=== PATIENT | female | born 1965 | race Caucasian/White ===

== ENCOUNTER 2020-03-09 18:08 | Inpatient (IN) | payer OTHER ==
[~2020-03-09] VITALS: Ht 172.7 cm; Wt 154.2 kg
[2020-03-09] MEDS: LACTATED RINGERS 1,000 ML IV SCH (04:00)
[2020-03-09] MEDS: NACL 0.9% 1,000 ML IV SCH (04:00)
--- NOTE | 2020-03-09 18:08 | NUR ---
PT BIBA BLS TO ER BED 11
[2020-03-09 18:22] VITALS: BP 114/59
--- NOTE | 2020-03-09 18:24 | NUR ---
54 Y/O F BIBA FROM HOME C/C ABDOMINAL CRAMPING, 10/10 PAIN, RADIATING FROM CENTER OF ABDOMEN TO THE LLQ X 1 DAY. PER PT USED LAXATIVES, TOOK DOSE IN THE AM AND PM YESTERDAY, HAD 3-4 BM, BROWN, DIARREAH. PER PT, LAXATIVE USE CAUSE ABDOMINAL CRAMPING DISCOMFORT TODAY AND CALLED AMBULANCE. PT NKA. HX DM,AFIB. RX HEMOLIN,BISOPROLOL.
[2020-03-09] MEDS ORDERED: NACL 0.9% 1,000 ML IV ONE ×2 (18:45→20:15)
[2020-03-09] MEDS ORDERED: ONDANSETRON 4 MG/2 ML VIAL IVP ONE (18:45)
[2020-03-09] MEDS ORDERED: MORPHINE SULFATE 5 MG/ML VIAL IVP ONE (18:45)
[2020-03-09 19:00] LABS: BASOPHILS # (AUTO) 0.1 K/uL (0.00-0.22); BASOPHILS % (AUTO) 0.4 % (0.0-2.0); EOSINOPHILS % (AUTO) 0.1 % (0.0-4.0); HEMATOCRIT 38.3 % (36-48); HEMOGLOBIN 12.2 g/dL (12.0-16.0); LYMPHOCYTES # (AUTO) 1.4 K/uL (2.5-16.5); LYMPHOCYTES % (AUTO) 6.7 % (20.5-51.1); MEAN CORPUSCULAR HEMOGLOBIN 27 pg (27-31); MEAN CORPUSCULAR HGB CONC 32 g/dL (33-37); MEAN CORPUSCULAR VOLUME 83.8 fL (80-94); MONOCYTES # (AUTO) 0.8 K/uL (0.8-1.0); MONOCYTES % (AUTO) 3.8 % (1.7-9.3); NEUTROPHILS # (AUTO) 18.1 K/uL (1.8-7.7); PLATELET COUNT (AUTO) 262 K/uL (140-450); RED BLOOD CELL COUNT(AUTO) 4.57 MIL/uL (4.20-5.40); RED CELL DISTRIBUTION WIDTH 16.4 % (11.6-13.7); WHITE BLOOD COUNT (AUTO) 20.3 K/uL (4.8-10.8)
--- NOTE | 2020-03-09 19:00 | NUR ---
CONSENT FOR CT WITH CONTRAST SIGNED BY PT AND PLACED IN CHART
[2020-03-09 19:18] LABS: ALBUMIN 2.6 g/dL (3.4-5.0); ANION GAP 14.5 (8-16); CARBON DIOXIDE 25.4 mmol/L (21-32); CREATININE 1.4 mg/dL (0.6-1.3); POTASSIUM 3.9 mmol/L (3.5-5.1)
--- NOTE | 2020-03-09 19:18 | NUR ---
REPORT GIVEN TO CONOR BATISTA FOR CONTINUITY OF CARE
--- NOTE | 2020-03-09 19:30 | NUR ---
RECEIVED REPORT FROM CORINA BATISTA
[2020-03-09] MEDS ORDERED: PIPERACILLIN/TAZOBACTAM 3.375 GM in DEXTROSE 5% 50 ML IV ONE (19:40)
[2020-03-09] MEDS ORDERED: NOREPINEPHRINE 4 MG in DEXTROSE 5% 250 ML IV ONE (21:10)
[2020-03-09] MEDS ORDERED: metroNIDAZOLE 500 MG/NS PREMIX 100 ML IV ONE (21:25)
[2020-03-09] MEDS ORDERED: ONDANSETRON 4 MG/2 ML VIAL IM/IVP PRN (21:55)
[2020-03-09] MEDS ORDERED: LORazepam 2 MG/ML VIAL IM/IVP PRN (21:55)
[2020-03-09] MEDS ORDERED: ACETAMINOPHEN 325 MG TAB PO PRN (21:55)
[2020-03-09] MEDS ORDERED: MORPHINE SULFATE 2 MG/ML SYR IVP PRN (21:55)
[2020-03-09] MEDS ORDERED: HYDROcodone/APAP 5/325 MG 1 TAB TAB PO PRN (21:55)
[2020-03-09] MEDS ORDERED: ZOLPIDEM 5 MG TAB PO PRN (21:55)
[2020-03-09] MEDS ORDERED: DOCUSATE SODIUM 100 MG GELCAP PO PRN (21:55)
[2020-03-09] MEDS ORDERED: HYDROmorphone 1 MG/ML AMP IVP PRN (22:15)
[2020-03-09] MEDS ORDERED: MEPERIDINE 25 MG/ML SYR IVP PRN (22:15)
[2020-03-09] MEDS ORDERED: BLOOD GLUCOSE MONITORING 1 DEV DEV FS SCH (22:15)
[2020-03-09] MEDS ORDERED: ONDANSETRON 4 MG/2 ML VIAL IVP PRN (22:15)
[2020-03-09] MEDS ORDERED: LIDOCAINE 1% 500 MG/50 ML VIAL ONE (22:25)
[2020-03-09] MEDS ORDERED: BUPIVACAINE-MPF 0.25% 30 ML VIAL INJ ONE (22:25)
--- NOTE | 2020-03-09 22:48 | NUR ---
PT TO GO TO SURGERY FOR PERFORATED COLON. SURGEON AT BEDSIDE SPEAKING WITH PT AND
[2020-03-09] MEDS ORDERED: PIPERACILLIN/TAZOBACTAM 3.375 GM VIAL IV ONE (23:04)
--- NOTE | 2020-03-09 23:12 | NUR ---
PT TAKEN TO OR BY OR STAFF
--- NOTE | 2020-03-09 23:15 | NUR ---
Patient will be admitted to care of DR JUNIOR. PT GOING DIRECTLY TO OR. Will go to room OR. Belongings list completed. Report to OR STAFF.
[2020-03-09] MEDS ORDERED: PHENYLEPHRINE 10 MG/ML VIAL ONE (23:19)
[2020-03-09] MEDS ORDERED: fentaNYL citrate 0.05 MG/ML VIAL ONE (23:19)
[2020-03-09] MEDS ORDERED: SUGAMMADEX SODIUM 200 MG/2 ML VIAL IV ONE (23:19)
[2020-03-09] MEDS ORDERED: DEXAMETHASONE 4 MG/ML VIAL ONE (23:19)
[2020-03-09] MEDS ORDERED: ROCURONIUM 50 MG/5 ML VIAL IV ONE (23:19)
[2020-03-09] MEDS ORDERED: SEVOFLURANE 250 ML BTL INH ONE (23:19)
[2020-03-09] MEDS ORDERED: PROPOFOL 200 MG/20 ML VIAL IV ONE (23:19)
[2020-03-09 23:29] LABS: PROTHROMBIN TIME 10.8 secs (10.8-13.4)
--- NOTE | 2020-03-09 23:30 | NUR ---
LAB DRAWN AT 2130, RECEIVED CRITICAL LAB VALUE FOR LACTIC ACID 2.1, AT 2330. NOT NOTIFIED, LACTIC ACID TRENDING DOWN.
[2020-03-09 23:39] LABS: CHOL/HDL RATIO 2.9 (1-4.5); FREE T4 (FREE THYROXINE) 1.29 ng/dL (0.76-1.46); MAGNESIUM 1.3 mg/dL (1.8-2.4); PHOSPHORUS 3.1 mg/dL (2.5-4.9); THYROID STIMULATING HORMONE 1.91 uIU/mL (0.34-3.74)
[2020-03-10] MEDS ORDERED: NORT10CA17 PO (00:03)
[2020-03-10] MEDS ORDERED: MONT10TA35 PO (00:04)
[2020-03-10] MEDS ORDERED: BISO10TA16 PO ×2 (00:06→22:50)
[2020-03-10] MEDS ORDERED: HUMALIN 70/30 (00:11)
[2020-03-10] MEDS ORDERED: INSU3SUS11 SUBQ (01:14)
[2020-03-10] MEDS ORDERED: INSU10SU2 SUBQ (01:14)
[2020-03-10] MEDS ORDERED: NORTRIPTYLINE 10 MG CAP PO PRN (01:15)
[2020-03-10] MEDS: HYDROmorphone PFS 2 MG/ML SYR ONE ×2 (02:50→03:00)
[2020-03-10 03:50] VITALS: BP 115/56
--- NOTE | 2020-03-10 03:50 | NUR ---
RECEIVED BEDSIDE REPORT FROM SR. DIRECTOR MAGDALENA FOR PT'S CONTINUITY OF CARE. PT IS S/P EX LAP WITH ILEOSTOMY AND JEREMY DRAIN IN PLACE. PT STATES HAVING BACK PAIN, PER SR. DIRECTOR, PT JUST RECEIVED DILAUDID. PT IS AAOX4, IS ON INFORMATION SYSTEMS PLANNER, RADIAL AND PEDAL PULSES ARE PRESENT, IS ON ROOM AIR, PT IS BEDREST AT THIS TIME, HAS COPELAND CATH IN PLACE, NO EDEMA, ABD DRESSING DRY AND INTACT. WILL MONITOR PT THROUGHOUT SHIFT.
[2020-03-10] MEDS: NACL 0.9% 1,000 ML IV SCH (04:33)
[2020-03-10] MEDS ORDERED: AMPICILLIN/SULBACTAM 3 GM VIAL ONE (05:57)
[2020-03-10] MEDS: AMPICILLIN/SULBACTAM 3 GM in NACL 0.9% 100 ML IV SCH ×3 (06:00→12:56)
[2020-03-10] MEDS: LACTATED RINGERS 1,000 ML IV SCH (06:30)
--- NOTE | 2020-03-10 06:30 | NUR ---
PER , DC LR AND CONTINUE NS AT 150 ML/HR. PT REFUSED HOSPITAL'S CPAP, RT EDUCATED PT, PT STILL REFUSED. MD AWARE.
--- NOTE | 2020-03-10 06:44 | NUR ---
PATIENT REFUSES TO WEAR CPAP AT [facility]. DOCTOR AND RN NOTIFIED. PATIENT STABLE NO RESP DISTRESS NO SHORTNESS OF BREATH
--- NOTE | 2020-03-10 06:45 | NUR ---
PT C/O BEING HOT, NO FEVER NOTED, PT GIVEN ICE PACKS FOR COOLING MEASURES, EMPTIED 60ML SANGUINOUS DRAINAGE FROM JEREMY DRAIN. PT CONTINUES OT BE ON 3L O2 FOR COMFORT, AWARE. WILL ENDORSE TO AM SHIFT RN FOR PT'S CONTINUITY OF CARE.
[2020-03-10] MEDS: ACETAMINOPHEN 325 MG TAB PO SCH ×4 (06:57→21:00)
--- NOTE | 2020-03-10 07:19 | NUR ---
PATIENT HAS BEEN SCREENED AND CATEGORIZED MODERATE NUTRITION RISK. PATIENT WILL BE SEEN WITHIN 3-5 DAYS OF ADMISSION. 03/12/20 03/14/[address]
--- NOTE | 2020-03-10 07:30 | NUR ---
RECEIVED REPORT FROM NIGHT NURSE FOR CONTINUITY OF CARE, PT IS STABLE, PT IS S/P EXPLORATORY LAP WITH ILEOSTOMY, JEREMY DRAIN, COPELAND CATH IN PLACE, PT ON 3L NC OXYGEN FOR COMFORT, BED IN LOW POSITION, NO SIGNS OF DISTRESS NOTED, CALL LIGHT WITHIN REACH.
[2020-03-10 08:00] VITALS: BP 110/72
[2020-03-10] MEDS ORDERED: DEXT 5% / NACL 0.9% 500 ML IV SCH (08:40)
[2020-03-10] MEDS ORDERED: DEXTROSE 50% 50 ML SYR IVP PRN (08:40)
[2020-03-10] MEDS ORDERED: CELECOXIB 100 MG CAP PO SCH (09:00)
[2020-03-10] MEDS ORDERED: INSULIN NPH HUM/REG INSULIN HM 100 UNIT/ML 10 ML VIAL SUBQ SCH ×2 (09:00→17:00)
[2020-03-10] MEDS: GABAPENTIN 300 MG CAP PO SCH ×2 (09:00→09:33)
[2020-03-10 09:14] LABS: BASOPHILS % (AUTO) 0.2 % (0.0-2.0); HEMATOCRIT 42.1 % (36-48); HEMOGLOBIN 13.3 g/dL (12.0-16.0); LYMPHOCYTES # (AUTO) 0.5 K/uL (2.5-16.5); LYMPHOCYTES % (AUTO) 2.7 % (20.5-51.1); MEAN CORPUSCULAR HEMOGLOBIN 27 pg (27-31); MEAN CORPUSCULAR HGB CONC 32 g/dL (33-37); MEAN CORPUSCULAR VOLUME 85.8 fL (80-94); MONOCYTES # (AUTO) 0.4 K/uL (0.8-1.0); NEUTROPHILS # (AUTO) 18.8 K/uL (1.8-7.7); NEUTROPHILS % (AUTO) 95.1 % (42.2-75.2); PLATELET COUNT (AUTO) 257 K/uL (140-450); RED BLOOD CELL COUNT(AUTO) 4.91 MIL/uL (4.20-5.40); RED CELL DISTRIBUTION WIDTH 17.1 % (11.6-13.7); WHITE BLOOD COUNT (AUTO) 19.7 K/uL (4.8-10.8)
[2020-03-10] MEDS ORDERED: NACL 0.9% 2,000 ML IV SCH (09:15)
[2020-03-10] MEDS: ENOXAPARIN 40 MG/0.4 ML SYR SUBQ SCH (09:35)
[2020-03-10 09:37] LABS: ANION GAP 14.6 (8-16); CREATININE 1.2 mg/dL (0.6-1.3); POTASSIUM 4.6 mmol/L (3.5-5.1)
[2020-03-10] MEDS: DEXT 5% /NACL 0.9% 1,000 ML IV SCH ×3 (09:39→23:01)
--- NOTE | 2020-03-10 09:41 | NUR ---
ADMINISTERED SCHEDULED MEDICATION, MEDICATION EDUCATION GIVEN, PT TOLERATED WELL, INCENTIVE SPIROMETER GIVEN AND EDUCATION GIVEN, PT RETURN DEMONSTRATE USAGE, COPELAND CATH REMOVED WITH 1100 ML YELLOW URINE, PT IS STABLE, NO SIGNS OF DISTRESS NOTED, CALL LIGHT WITHIN REACH.
[2020-03-10] MEDS: BLOOD GLUCOSE MONITORING 1 DEV DEV FS SCH ×3 (11:30→21:00)
[2020-03-10 12:00] VITALS: BP 110/60
[2020-03-10] MEDS: INSULIN LISPRO SLIDING SCALE 100 UNITS/ML VIAL SUBQ PRN ×3 (13:11→23:00)
--- NOTE | 2020-03-10 13:12 | NUR ---
ADMINISTERED 4 UNITS OF HUMALOG FOR BLOOD GLUCOSE OF 245, ADMINISTERED SCHEDULED MEDICATION, MEDICATION EDUCATION GIVEN, PT TOLERATED MEDICATION WELL, PT IS STABLE, CALL LIGHT WITHIN REACH.
[2020-03-10] MEDS: HYDROcodone/APAP 5/325 MG 1 TAB TAB PO PRN (15:40)
--- NOTE | 2020-03-10 15:43 | NUR ---
ADMINISTERED NORCO FOR ABDOMINAL PAIN 6/10 PAIN AT INCISIONAL SITE, MEDICATION EDUCATION GIVEN, PT VERBALIZED UNDERSTANDING, PT TOLERATED WELL, PT IS STABLE, NO SIGNS OF DISTRESS NOTED, CALL LIGHT WITHIN REACH.
[2020-03-10 16:00] VITALS: BP 115/62
--- NOTE | 2020-03-10 17:48 | NUR ---
ADMINISTERED 2 UNITS OF HUMALOG FOR BLOOD GLUCOSE OF 163, MEDICATION EDUCTION GIVEN, PT TOLERATED WELL, PT IS STABLE, NO SIGNS OF DISTRESS NOTED, CALL LIGHT WITHIN REACH.
[2020-03-10] MEDS ORDERED: PIPERACILLIN/TAZOBACTAM 3.375 GM VIAL IV ONE ×2 (18:11→23:40)
[2020-03-10] MEDS: PIPERACILLIN/TAZOBACTAM 3.375 GM in DEXTROSE 5% 50 ML IV SCH ×2 (18:17→23:59)
--- NOTE | 2020-03-10 18:26 | NUR ---
ADMINISTERED SCHEDULED MEDICATION, MEDICATION EDUCATION GIVEN, PT VERBALIZED UNDERSTANDING, PT TOLERATED WELL, PT IS STABLE, NO SIGNS OF DISTRESS NOTED, CALL LIGHT WITHIN REACH.
--- NOTE | 2020-03-10 19:30 | NUR ---
RECFEIVED REPORT AT BEDSIDE FOR CONTINUITY OF CARE.
--- NOTE | 2020-03-10 19:35 | NUR ---
ENDORSE PT TO NIGHT NURSE FOR CONTINUITY OF CARE, PT IS STABLE
[2020-03-10 20:00] VITALS: BP 112/64
--- NOTE | 2020-03-10 20:00 | NUR ---
PT RECEIVED ALL ORDERED MEDS DUE , SHE DECLINED TYLENOL. DRESSINGS ON ABDOMEN DRY AND INTACT. JEREMY INTACT AND DRAINING BRADLEY BLOOD. IV FLUIDS RUNNING ORDERED.
[2020-03-10] MEDS: SIMETHICONE 80 MG TAB.CHEW PO PRN (20:09)
[2020-03-10] MEDS ORDERED: LACTATED RINGERS 1,000 ML IV ONE (21:10)
--- NOTE | 2020-03-10 21:30 | NUR ---
KWASI GIVEN FOR PAIN MEDICATION. PT ALSO RECEIVED PRN GAS MEDICATION.
[2020-03-11] VITALS: BP_SYST 114; BP_SYST 124; BP_DIAS 72
--- NOTE | 2020-03-11 | NUR ---
PT IN BED V/S STABLE PT REQUESTING CERTAIN OF HER MEDS BE GIVEN CHRISTINA, SPOKE W MD MON REGARDING PT REQUESTS.
[2020-03-11] MEDS: HYDROcodone/APAP 5/325 MG 1 TAB TAB PO PRN ×2 (00:13→07:00)
[2020-03-11 04:00] VITALS: BP 116/76
--- NOTE | 2020-03-11 04:00 | NUR ---
PT TOOK DUE MEDS EXCEPT ATENOLOL INSTEAD REQUESTNG TO TAKE HER MEDICATION. V/S AND HEART RYTHM IN NORMAL RANGE. DRESSINGS DRY AND INTACT.
[2020-03-11] MEDS ORDERED: PIPERACILLIN/TAZOBACTAM 3.375 GM VIAL IV ONE (05:12)
[2020-03-11] MEDS ORDERED: atenoloL 50 MG TAB ONE (05:13)
--- NOTE | 2020-03-11 06:00 | NUR ---
AM FINGERSTICK IS 215, GIVEN HUMALOG COVERAGE ORDERED ALL REQUESTED NEEDS ATTENDED BY STAFF,
[2020-03-11] MEDS: DEXT 5% /NACL 0.9% 1,000 ML IV SCH (06:11)
[2020-03-11] MEDS: PIPERACILLIN/TAZOBACTAM 3.375 GM in DEXTROSE 5% 50 ML IV SCH ×3 (06:12→18:19)
[2020-03-11] MEDS: atenoloL 50 MG TAB PO SCH (06:17)
[2020-03-11] MEDS: INSULIN LISPRO SLIDING SCALE 100 UNITS/ML VIAL SUBQ PRN ×3 (06:31→21:39)
--- NOTE | 2020-03-11 06:44 | NUR ---
PT REMOVED CPAP MASK LAST NIGHT AND DIDNT WANT TO PLACE BACK ON PT WAS LEFT OF PAP FOR REMAINDER OF MORNING NO S/S OF DISTRESS AT THIS TIME PT PAP SETTINGS ON HOME UNIT IS APAP 4-10CM PT FELT COMFORTABLE W/ CPAP 6
[2020-03-11] MEDS: BLOOD GLUCOSE MONITORING 1 DEV DEV FS SCH ×4 (06:59→21:39)
--- NOTE | 2020-03-11 07:11 | NUR ---
RECEIVED REPORT FROM NIGHT NURSE FOR CONTINUITY OF CARE. AAOX4, PAIN TOLERABLE AT THIS TIME. PT IS STABLE, PT IS S/P EXPLORATORY LAP CHOLECTOMY WITH ILEOSTOMY, JEREMY DRAIN COVERED WITH DRESSING C/D/I. INCENTIVE SPIROMETER AT BEDSIDE, ENCOURAGED PT TO USE. ALSO PROVIDED TEACHING FOR NEED TO AMBULATE. PT IS WILLING TO TRY AMBULATION AFTER EATING BREAKFAST TRAY. NO SIGNS OF DISTRESS NOTED, CALL LIGHT WITHIN REACH.
[2020-03-11] MEDS: ACETAMINOPHEN 325 MG TAB PO SCH ×5 (07:30→20:28)
[2020-03-11 08:00] VITALS: BP 112/65
[2020-03-11] MEDS ORDERED: DEXT 5% / NACL 0.9% 1,000 ML IV SCH (08:40)
[2020-03-11] MEDS: POTASSIUM CHL 10 MEQ/D5-1/2NS 1,000 ML IV SCH ×2 (08:49→18:19)
[2020-03-11] MEDS: PANTOPRAZOLE 40 MG TABEC PO SCH (08:49)
[2020-03-11] MEDS: ENOXAPARIN 40 MG/0.4 ML SYR SUBQ SCH (08:54)
[2020-03-11 10:27] LABS: BASOPHILS % (AUTO) 0.1 % (0.0-2.0); EOSINOPHILS % (AUTO) 0.2 % (0.0-4.0); HEMATOCRIT 37.5 % (36-48); HEMOGLOBIN 11.8 g/dL (12.0-16.0); LYMPHOCYTES # (AUTO) 1.9 K/uL (2.5-16.5); LYMPHOCYTES % (AUTO) 12.5 % (20.5-51.1); MEAN CORPUSCULAR HEMOGLOBIN 27 pg (27-31); MEAN CORPUSCULAR HGB CONC 32 g/dL (33-37); MEAN CORPUSCULAR VOLUME 85.3 fL (80-94); MONOCYTES # (AUTO) 0.7 K/uL (0.8-1.0); MONOCYTES % (AUTO) 4.5 % (1.7-9.3); NEUTROPHILS # (AUTO) 12.8 K/uL (1.8-7.7); NEUTROPHILS % (AUTO) 82.7 % (42.2-75.2); PLATELET COUNT (AUTO) 319 K/uL (140-450); RED BLOOD CELL COUNT(AUTO) 4.39 MIL/uL (4.20-5.40); RED CELL DISTRIBUTION WIDTH 16.7 % (11.6-13.7); WHITE BLOOD COUNT (AUTO) 15.5 K/uL (4.8-10.8)
--- NOTE | 2020-03-11 10:41 | NUR ---
PT HOME MEDS BISOPROLOL AND Nortriptyline GIVEN TO PHARMACY
[2020-03-11 11:17] LABS: ANION GAP 13.2 (8-16); CARBON DIOXIDE 25.7 mmol/L (21-32); POTASSIUM 3.9 mmol/L (3.5-5.1)
--- NOTE | 2020-03-11 11:22 | NUR ---
PT STATING SHE WANTS TO EAT LUNCH FIRST THEN TRY TO AMBULATE.
[2020-03-11 12:00] VITALS: BP 96/63
--- NOTE | 2020-03-11 12:50 | NUR ---
PT TOLERATED LUNCH WITHOUT N/V, STATES SOME MILD ABD CRAMPING.
--- NOTE | 2020-03-11 12:54 | NUR ---
PT HELPED ONTO BEDPAN FOR VOIDING. WILL ADMINISTER SLIDING SCALE INSULIN AFTER. Addendum: 03/11/20 at 1514 by Laverne Luevano Meng, RN EDUCATED PT ON IMPORTANCE OF AMBULATION. SURGEON WANTS PT TO AMBULATE TO BATHROOM RATHER THAN USE BEDPAN. PT STILL WANTS TO USE BEDPAN THIS TIME.
--- NOTE | 2020-03-11 13:34 | NUR ---
PT STATES SHE FEELS SOME GAS BEING RELEASED INTO ILEOSTOMY BAG. ALSO FEELS BETTER WITH ABD BINDER APPLIED. PAIN TOLERABLE. NO MEDS REQUESTED AT THIS TIME.
--- NOTE | 2020-03-11 14:15 | NUR ---
DISCHARGE PLANNING: GUI CONTACTED JENNIFER FROM [facility] [phone] REGARDING TRANSFERRING PATIENT TO [place]. JENNIFER TRANSFERRED SW TO [facility] [phone]. PER CARIDAD, [facility] AND [facility] ARE NOT ACCEPTING PATIENTS AT THIS TIME.
--- NOTE | 2020-03-11 15:15 | NUR ---
PATIENT SLEEPING IN BED, EQUAL RISE AND FALL OF CHEST BILATERALLY, APPEARS COMFORTABLE.
[2020-03-11] MEDS: SIMETHICONE 80 MG TAB.CHEW PO PRN (16:13)
--- NOTE | 2020-03-11 16:14 | NUR ---
PT MOVEMENT LIMITED BY PAIN. ADMINISTERED MORPHINE IVP AND PATIENT WILL USE CALL LIGHT TO NOTIFY STAFF WHEN READY TO TRY AMBULATING OUT OF BED.
[2020-03-11 16:30] VITALS: BP 119/69
--- NOTE | 2020-03-11 16:40 | NUR ---
Checked in with pt as she still had not used call light to notify staff that she is ready to ambulate. Pt states "I want to wait just a little longer". Reinforced the need to ambulate post op. Pt verbalized understanding.
--- NOTE | 2020-03-11 17:08 | NUR ---
PT STATES SHE IS WILLING GO TRY AMBULATION NOW BUT IS REQUESTING A WALKER BECAUSE SHE FEELS TO WEAK TO USE CANE (WHICH IS NORMALLY USES AT BASELINE) AND WITH 2-PERSON ASSIST. UNABLE TO LOCATED WALKER ON UNIT. WILL ASK DIRECTOR SARABJIT.
--- NOTE | 2020-03-11 17:36 | NUR ---
DIRECTOR SARABJIT SEARCHING FOR CONNIE NOW
--- NOTE | 2020-03-11 18:14 | NUR ---
NO WALKERS AVAILABLE ON UNIT PER DIRECTOR SARABJIT. PT HAS PHYSICAL THERAPY ORDERED. INFORMED PT.
--- NOTE | 2020-03-11 19:15 | NUR ---
RECEIVED REPORT FROM AM RN FOR CONTINUITY OF CARE. PATIENT IS AAOX4, STABLE, ROOM AIR, BEDREST. PT IS S/P EXPLORATORY LAP CHOLECTOMY WITH ILEOSTOMY, JEREMY DRAIN COVERED WITH DRESSING C/D/I AND ABDOMINAL BINDER. INCENTIVE SPIROMETER AT BEDSIDE, ENCOURAGED PT TO USE. NO SIGNS OF DISTRESS NOTED, CALL LIGHT WITHIN REACH AND BED IS IN LOWEST POSITION.
--- NOTE | 2020-03-11 19:15 | NUR ---
REPORT TO WASTE DISPOSAL ATTENDANT RN, PT IN STABLE CONDITION. INFORMED WASTE DISPOSAL ATTENDANT RN THAT NO WALKERS AVAILABLE ON UNIT.
[2020-03-11 20:00] VITALS: BP 145/79
--- NOTE | 2020-03-11 20:15 | NUR ---
PT REQUESTING TO GO CPAP ONCE SHE RECEIVES MEDS FROM RN RN AT BEDSIDE NOW
[2020-03-11] MEDS: NORTRIPTYLINE 25 MG CAP PO SCH ×2 (20:17→20:28)
[2020-03-11] MEDS: HYDROmorphone 1 MG/ML AMP IVP PRN (20:17)
--- NOTE | 2020-03-11 20:17 | NUR ---
ADMINISTERED DILAUDID 1MG IVP
--- NOTE | 2020-03-11 21:39 | NUR ---
BS 136
--- NOTE | 2020-03-11 22:20 | NUR ---
PT IS CURRENTLY UTILIZING CPAP 6 ( HOME SETTINGS APAP 4-10 ) W/ HER OWN PILLOW MASK CONFIRMED BIPAP ORDER 08/05 R12 35% W/ DR CANELA AND DR CANELA STATED PT OK W/ CPAP 6 ON 21% IF SHES TOLERATING WELL
[2020-03-12] VITALS: BP 128/62
[2020-03-12] MEDS ORDERED: PIPERACILLIN/TAZOBACTAM 3.375 GM VIAL IV ONE (01:13)
[2020-03-12] MEDS: PIPERACILLIN/TAZOBACTAM 3.375 GM in DEXTROSE 5% 50 ML IV SCH ×4 (01:20→18:17)
--- NOTE | 2020-03-12 01:20 | NUR ---
HANGED ZOSYN 3.375 IVPB
--- NOTE | 2020-03-12 03:48 | NUR ---
ADMINISTERED ZOFRAN 4MG IVP DUE TO PATIENT COMPLAINT OF N/V
[2020-03-12] MEDS: POTASSIUM CHL 10 MEQ/D5-1/2NS 1,000 ML IV SCH ×3 (03:55→23:45)
[2020-03-12 04:00] VITALS: BP 118/52
--- NOTE | 2020-03-12 04:00 | NUR ---
EMPTIED JEREMY 50ML, ILEOSTOMY WAS STILL EMPTY
[2020-03-12 06:12] LABS: BASOPHILS # (AUTO) 0.1 K/uL (0.00-0.22); BASOPHILS % (AUTO) 0.7 % (0.0-2.0); EOSINOPHILS # (AUTO) 0.3 K/uL (0-0.4); EOSINOPHILS % (AUTO) 2.2 % (0.0-4.0); HEMATOCRIT 36.1 % (36-48); HEMOGLOBIN 11.5 g/dL (12.0-16.0); LYMPHOCYTES # (AUTO) 2.1 K/uL (2.5-16.5); LYMPHOCYTES % (AUTO) 18.1 % (20.5-51.1); MEAN CORPUSCULAR HEMOGLOBIN 27 pg (27-31); MEAN CORPUSCULAR HGB CONC 32 g/dL (33-37); MEAN CORPUSCULAR VOLUME 85.3 fL (80-94); MONOCYTES # (AUTO) 0.7 K/uL (0.8-1.0); MONOCYTES % (AUTO) 5.7 % (1.7-9.3); NEUTROPHILS # (AUTO) 8.6 K/uL (1.8-7.7); NEUTROPHILS % (AUTO) 73.3 % (42.2-75.2); PLATELET COUNT (AUTO) 314 K/uL (140-450); RED BLOOD CELL COUNT(AUTO) 4.23 MIL/uL (4.20-5.40); WHITE BLOOD COUNT (AUTO) 11.8 K/uL (4.8-10.8)
--- NOTE | 2020-03-12 06:29 | NUR ---
PT WAS OFF PAP WHEN I ARRIVED FOR 3 AM CPAP CHECK PT WAS AWAKE AND REQUESTED TO STAY OFF PAP UNIT FOR NOW
[2020-03-12] MEDS: atenoloL 50 MG TAB PO SCH (06:30)
[2020-03-12] MEDS: BLOOD GLUCOSE MONITORING 1 DEV DEV FS SCH ×4 (06:42→20:45)
--- NOTE | 2020-03-12 06:42 | NUR ---
BS 160
[2020-03-12] MEDS: INSULIN LISPRO SLIDING SCALE 100 UNITS/ML VIAL SUBQ PRN ×2 (06:43→13:52)
[2020-03-12 07:15] LABS: ANION GAP 10.2 (8-16); CARBON DIOXIDE 26.5 mmol/L (21-32); POTASSIUM 3.7 mmol/L (3.5-5.1)
--- NOTE | 2020-03-12 07:30 | NUR ---
RECEIVED PT ON BED AAOX4. NO SOB NOTED. NO C/O PAIN AT THIS TIME. IV TO LT HAND PATENT AND INTACT. CHEST CLEAR, ABDOMEN SOFT, BOWEL SOUNDS PRESENT. NO EDEMA NOTED. NO C/O PAIN AT THIS TIME. S/P EX LAP, PARTIAL COLECTOMY; WITH ILEOSTOMY AND JEREMY DRAIN NOTED. INSTRUCTED PT TO CALL FOR ASSISTANCE, CALL LIGHT WITHIN REACH. PT VERBALIZED UNDERSTANDING.
--- NOTE | 2020-03-12 07:39 | NUR ---
WILL ENDORSE TO DAY SHIFT NURSE FOR CONTINUITY CARE
[2020-03-12] MEDS: ACETAMINOPHEN 325 MG TAB PO SCH ×3 (07:42→20:45)
[2020-03-12 08:00] VITALS: BP 100/51
[2020-03-12] MEDS: MONTELUKAST SODIUM 10 MG TAB PO SCH (10:20)
[2020-03-12] MEDS: PANTOPRAZOLE 40 MG TABEC PO SCH (10:20)
[2020-03-12] MEDS: SIMETHICONE 80 MG TAB.CHEW PO PRN (10:20)
[2020-03-12] MEDS: HYDROcodone/APAP 5/325 MG 1 TAB TAB PO PRN (10:21)
[2020-03-12] MEDS: ENOXAPARIN 40 MG/0.4 ML SYR SUBQ SCH (10:23)
--- NOTE | 2020-03-12 10:35 | NUR ---
WOUND CARE EVALUATION NOTE: REASON FOR EVALUATION: SURGICAL WOUNDS WOUND CARE ASSESSMENT DONE WITH THIS 54-YEAR-OLD FEMALE ADMITTED TO [facility] WITH C/O ABDOMINAL PAIN. PAST MEDICAL HISTORY INCLUDES DIABETES AND A-FIB .S/P LAPAROTOMY PARTIAL COLECTOMY AND DIVERTING ILEOSTOMY FOR PERFORATED DESCENDING COLON DIVERTICULITIS ON 03/10/2020. ALL ABOVE INFORMATION OBTAINED FROM ADMISSION H&P. AND PT. PT IS AAX4, AWAKE. SKIN IS WARM AND DRY, +1 EDEMA TO BILATERAL LOWER LEGS. BILATERAL DORSAL PEDAL PULSES PRESENT AND NORMAL. ILEOSTOMY TEACHING AND WOUND CARE INSTRUCTIONS PROVIDES TO PT. PLAN OF CARE DISCUSSED WITH PT. PT. VERBALIZING UNDERSTANDING. INTEGUMENTARY: -MID ABDOMINAL SURGICAL WOUND MULTIPLE DALE IN PLACE AND SECURED, NO S/S OF WOUND DEHISCENCE -MID LOWER ABDOMINAL JEREMY DRAINS IN PLACE AND SECURED WITH SUTURES, SEROSANGUINEOUS DRAINAGE OBSERVED, NO ODOR -RIGHT UPPER ABDOMINAL COLOSTOMY STOMA BEEFY RED. MOIST, OVAL SHAPE, 43MM AND 1CM PROTRUDING, RED RUBBER CATHETER WAS SECURED IN PLACE, SABRINA -STOMA SKIN INTACT , NO OUTPUT OBSERVED. RECOMMENDATIONS: -CLEANSE ABDOMINAL DALE AND SUTURES WITH NS, PAT DRY, COVER WITH DRY DRESSING QD AND PRN IF SOILING -SNF OR HOME HEALTH TO FOLLOW UPON DISCHARGED -FOLLOW UP WITH SURGEON IN 7-10 DAYS UPON DISCHARGE -CONTINUE TO MONITOR AND RECORD JEREMY DRAIN -APPLY ABDOMINAL BINDER AT ALL TIMES -OSTOMY CARE PER PROTOCOL AND DURING OSTOMY CARE PLEASE FOLLOW INSTRUCTION BELOW: -CHECK SABRINA STOMA SKIN CONDITION EVERY TIME WAFER CHANGED Q 5 DAYS AND PRN IF DISPLACED -APPLY SKIN PREP TO SABRINA-OSTOMY SKIN -APPLY STOMA ADHESIVE PAST TO THE WAFER, NEAR THE EDGE OF STOMA SKIN AREA, PAT FLAT. APPLY SKIN PREP TO SABRINA-STOMA SKIN - USE 2- PIECES INDHI OSTOMY DEVICES FORMA FLEX WITH 43MM MOLDABLE TO FIT THE STOMA EXACTLY. NO SKIN SHOWING. APPLY PRE-CUT WAFER TO OSTOMY AND ATTACHED POUCH TO WAFER. CHANGE WAFER Q5 DAYS. -EMPTY AND RINSE POUCH WHEN IT IS 1/3 FULL. CHANGE POUCH Q5 DAYS AND PRN IF LEAK -MAY DISCHARGE HOME WITH SULLPIES FOLLOWIN COMPLETE POUCH CHANGES 1 TUBE OF STOMA ADHESIVE PASTE 1 BOTTLE OF STOMA ADHESIVE POWDER 4 SKIN PREP ABOVE INSTRUCTION EXPLAINED AND DEMONSTRATED TO PT. PT. VERBALIES UNDERSTANDING. PRIMARY RN CONTINUE TEACHING COLOSTOMY CARE.
--- NOTE | 2020-03-12 11:36 | NUR ---
DISCHARGE PLANNING: RECEIVED AN ORDER TRANSFER TO CONTRACTED FACILITY. CONTACTED [facility] AT [phone], ABLE TO SPEAK TO DIRECTOR QUALITY SYSTEMS KATIA. SHE STATED ASSIGNED SONJA Guerrero/DIRECTOR QUALITY SYSTEMS LAUREN FOR TODAY. UPDATED HER OF THE PATIENT CONDITION. SHE STATED TO SEND THE ORDER ORDER IN AND CM WILL WORK ON IT. WILL FOLLOW UP. POST STABILIZATION FORM, UPDATED CLINICALS AND ORDER SENT. Addendum: 03/12/20 at 1420 by Dian Galdamez CM THIS IS A 54 Y/O FEMALE PATIENT FROM HOME, WHO CAME IN DUE TO ABDOMINAL PAIN. PAST MEDICAL AND SURGICAL HISTORY INCLUDE DM, A FIB, MDD AND AXEL, OOPHORECTOMY, TOTAL KNEE REPLACEMENT AND POSTERIOR DECOMPRESSION OF THE LOWER THORACIC SPINE. INITIAL DIAGNOSIS OF PERFORATED DESCENDING COLITIS. S/P LAP MOBILIZATION OF SPLENIC FLEXURE, PARTIAL COLECTOMY AND DIVERTING ILEOSTOMY ON 03/09/[address] ROBERTSON. DC PLAN PENDING ON PATIENT'S RESPONSE TO TREATMENT. Addendum: 03/12/20 at 1522 by Dian Galdamez CM RECEIVED A CALL FROM SONJA Guerrero, INQUIRING IF PATIENT IS STABLE TO BE DC HOME. INFORMED HER THAT I WILL DISCUSS IT WITH THE PHYSICIAN AND WILL CALL HER BACK. DR. SAAVEDRA MADE AWARE. PER DR. SAAVEDRA WE ARE STILL WAITING FOR BLOOD CULTURES. SONJA HOANG WITH [facility] MADE AWARE, SHE STATED WILL BE WORKING ON AUTH LATER TODAY. WILL FOLLOW UP. Addendum: 03/13/20 at 1106 by Dian Galdamez CM CONTACTED [facility], ABLE TO SPEAK TO SONJA AKINS. UPDATED HER OF THE PATIENT'S CONDITION. SHE CONFIRMED THAT THEY RECEIVED ORDER FOR HOME HEALTH FOR WOUND AND OSTOMY CARE. SHE STATED SHE WILL START WORKING ON THIS ONE. INFORMED HER THAT I SENT AN ORDER YESTERDAY FOR TRANSFER TO CONTRACTED FACILITY. SHE STATED THEY DO NOT HAVE BED AT [facility] AND WILL BE WORKING ON THE AUTH. Addendum: 03/14/20 at 1413 by Dian Galdamez CM CONTACTED MARISA, ABLE TO SPEAK TO DIRECTOR QUALITY SYSTEMS YOSEF. INFORMED HIM THAT THE PATIENT WILL BE DISCHARGING TODAY AND WILL BE NEEDING HOME HEALTH FOR WOUND AND OSTOMY CARE WELL PT. HE STATED SONJA VERENICE Guerrero IS AWARE SINCE YESTERDAY AND REFERRAL WAS MADE. THEIR PHYSICIAN WILL CONTACT THE PATIENT. I ALSO INQUIRED ABOUT OSTOMY SUPPLIES, HE STATED IF IT IS COVERED OR WITH CO PAYMENT SOMEONE WILL BE CONTACTING THE PATIENT. DR. SAAVEDRA MADE AWARE. HE STATED HE WILL DC THE PATIENT. Addendum: 03/15/20 at 1119 by Dian Galdamez RECEIVED A MESSAGE FROM CHARGE NURSE SHANNAN REGARDING PATIENT REQUESTING TO SPEAK TO THIS QUALITY ASSURANCE TESTER REGARDING HER OSTOMY SUPPLIES. CONTACTED THE PATIENT AT [phone], NO ANSWER LEFT MESSAGE. CONTACTED [facility] AT [phone], ABLE TO SPEAK TO [employer]. SHE STATED THAT THEY HAVE PROCESSED IT ALREADY AND SOME HAVE CALLED THEM. INFORMED HER THAT I COULD NOT ANSWER THAT, SINCE PATIENT DID NOT WRITER THE PHONE WHEN I CALLED. SHE PROVIDED ME WITH THEIR DME SUPPLIER [phone]. PER [facility] HAVE THE PATIENT CALL THAT NUMBER TO INQUIRE THE STATUS OF THE DELIVERY. CONTACTED PATIENT'S LOY RICHARDSON AT [phone]. PER LOY, THEY ARE IN [facility] RIGHT NOW TO HAVE THE BAG REPLACED. PROVIDED HIM OF THE [employer]'S PHONE NUMBER. I ALSO INFORMED HIM THAT HOME HEALTH WILL BE CONTACTING THEM. ABLE TO VERBALIZE UNDERSTANDING.
[2020-03-12 12:00] VITALS: BP 115/64
[2020-03-12] MEDS ORDERED: MAG SULF 2000 MG/WATER PREMIX 50 ML IV SCH (13:00)
--- NOTE | 2020-03-12 13:21 | NUR ---
SANDING MACHINE OPERATOR OR TENDER NOTE: Patient's Orientation Person Situation Place Time Information Provided By PATIENT Comments SW MET PATIENT AT BEDSIDE. Pick Out Hand, Realtionship and Phone Number LOY RICHARDSON [phone] Healthcare Power of Snow Shoveler No Does Patient Have a POLST No Identifying Problems No Social Work Triggers Is A Social Work Consult Needed No Mandate Report Filed No Explanation Of Identifying Problems PATIENT IS A 54-YEAR-OLD FEMALE ADMITTED FOR ABDOMINAL PAIN. PATIENT HAS PMHX OF DM, AFIB, AND MDD. Admitted From Home Pre-Admission Level Of Functioning Status Independent With DME Prior Resources/Services Used In Last 12 Months No Prior Resources Used Prior DME Walker Living Situation Lives With Family House Patient Had Caregiver No Home Support No Caregiver Issues Financial Issues No Known Financial Issue Referral To The Financial Counselor Needed No Factors/Needs No D/C Needs Identified Pt/Rep Participated In Discharge Plan Yes Patient/Family Agress With Discharge Plan Yes Discharge Plan Comments TENTATIVE DISCHARGE PLAN IS FOR PATIENT TO RETURN HOME.
[2020-03-12] MEDS: GABAPENTIN 300 MG CAP PO SCH ×2 (13:49→18:12)
[2020-03-12 16:00] VITALS: BP 131/80
--- NOTE | 2020-03-12 16:00 | NUR ---
URINE SPECIMEN COLLECTED AND SENT TO LAB FOR URINE CULTURE.
[2020-03-12] MEDS: IBUPROFEN 400 MG TAB PO SCH ×2 (18:12→20:45)
--- NOTE | 2020-03-12 19:25 | NUR ---
RECEIVED PATIENT IN STABLE CONDITION FROM AM SHIFT NURSE FOR CONTINUITY OF CARE. TELE PATIENT. RESPIRATIONS EVEN, UNLABORED. NO C/O PAIN. NO S/S ACUTE DISTRESS. SKIN WARM, DRY. IV SITE TO LEFT HAND 20G PATENT/INTACT, INFUSING FLUIDS WELL. ILEOSTOMY NOTED. JEREMY DRAIN INTACT WITH MINIMAL DRAINING NOTED. PLAN OF CARE DISCUSSED WITH PATIENT. CALL LIGHT WITHIN REACH.
--- NOTE | 2020-03-12 19:30 | NUR ---
PT RESTING. NO SOB NOTED. NO COMPLAINTS MADE. ENDORSED TO NEXT NURSE FOR CONTINUITY OF CARE.
[2020-03-12 20:00] VITALS: BP 121/69
[2020-03-12] MEDS: NORTRIPTYLINE 25 MG CAP PO SCH (20:45)
--- NOTE | 2020-03-12 21:30 | NUR ---
PATIENT AWAKE AND IN STABLE CONDITION. NO C/O PAIN. NO S/S ACUTE DISTRESS. PROVIDED EDUCATION REGARDING AMBULATION AND COMPLICATIONS RELATED TO IMMOBILITY. PATIENT VERBALIZED UNDERSTANDING BUT NEEDS REINFORCEMENT. CALL LIGHT WITHIN REACH.
--- NOTE | 2020-03-12 23:30 | NUR ---
PATIENT ON CPAP, TOLERATING WELL. NO S/S ACUTE DISTRESS. CALL LIGHT WITHIN REACH.
[2020-03-13] VITALS: BP 129/86
[2020-03-13 00:09] LABS: APPEARANCE,URINE HAZY (CLEAR); BILIRUBIN,URINE NEGATIVE (NEGATIVE); BLOOD, URINE NEGATIVE (NEGATIVE); COLOR,URINE YELLOW (YELLOW); LEUKOCYTE ESTERASE ,URINE NEGATIVE (NEGATIVE); NITRITE, URINE NEGATIVE (NEGATIVE); PH,URINE 6.5 (5.0-9.0); UGLUCOSE NEGATIVE (NEGATIVE)
[2020-03-13 00:32] LABS: BARBITURATE, URINE NEGATIVE ng/ml (NEG <=200)
[2020-03-13 00:33] LABS: BENZODIAZEPINE, URINE POSITIVE ng/mL (NEG <=200); CANNABINOID, URINE NEGATIVE ng/mL (NEG <=50); COCAINE, URINE NEGATIVE ng/mL (NEG <=300); OPIATE, URINE POSITIVE ng/mL (NEG <=2000); PHENCYCLIDINE SCREEN,URINE NEGATIVE ng/mL (NEG <=25)
--- NOTE | 2020-03-13 01:53 | NUR ---
PATIENT IS ASLEEP AND IN STABLE CONDITION. NO S/S ACUTE DISTRESS. CALL LIGHT WITHIN REACH.
--- NOTE | 2020-03-13 03:00 | NUR ---
CPAP IN PLACE. PATIENT SLEEPING WELL. NO S/S ACUTE DISTRESS. CALL LIGHT WITHIN REACH.
[2020-03-13 04:00] VITALS: BP 101/53
--- NOTE | 2020-03-13 05:30 | NUR ---
INCONTINENT CARE RENDERED. 75ML EMPTIED FROM JEREMY DRAIN. CALL LIGHT IN REACH.
[2020-03-13 05:49] LABS: BASOPHILS # (AUTO) 0.1 K/uL (0.00-0.22); BASOPHILS % (AUTO) 0.7 % (0.0-2.0); EOSINOPHILS # (AUTO) 0.5 K/uL (0-0.4); EOSINOPHILS % (AUTO) 4.8 % (0.0-4.0); HEMATOCRIT 37.2 % (36-48); HEMOGLOBIN 11.9 g/dL (12.0-16.0); LYMPHOCYTES # (AUTO) 2.8 K/uL (2.5-16.5); LYMPHOCYTES % (AUTO) 26.8 % (20.5-51.1); MEAN CORPUSCULAR HEMOGLOBIN 27 pg (27-31); MEAN CORPUSCULAR HGB CONC 32 g/dL (33-37); MEAN CORPUSCULAR VOLUME 85.1 fL (80-94); MONOCYTES # (AUTO) 0.6 K/uL (0.8-1.0); MONOCYTES % (AUTO) 5.6 % (1.7-9.3); NEUTROPHILS # (AUTO) 6.5 K/uL (1.8-7.7); NEUTROPHILS % (AUTO) 62.1 % (42.2-75.2); PLATELET COUNT (AUTO) 330 K/uL (140-450); RED BLOOD CELL COUNT(AUTO) 4.37 MIL/uL (4.20-5.40); RED CELL DISTRIBUTION WIDTH 16.2 % (11.6-13.7); WHITE BLOOD COUNT (AUTO) 10.5 K/uL (4.8-10.8)
[2020-03-13] MEDS: PIPERACILLIN/TAZOBACTAM 3.375 GM in DEXTROSE 5% 50 ML IV SCH ×5 (06:03→18:48)
[2020-03-13] MEDS: atenoloL 50 MG TAB PO SCH (06:05)
[2020-03-13 06:41] LABS: ANION GAP 10.9 (8-16); CARBON DIOXIDE 27.1 mmol/L (21-32)
[2020-03-13] MEDS: IBUPROFEN 400 MG TAB PO SCH ×4 (06:41→22:13)
[2020-03-13] MEDS: BLOOD GLUCOSE MONITORING 1 DEV DEV FS SCH ×4 (06:41→21:00)
[2020-03-13] MEDS: ACETAMINOPHEN 325 MG TAB PO SCH ×5 (06:41→21:00)
--- NOTE | 2020-03-13 07:15 | NUR ---
RECEIVED REPORT FROM COMMODITY BROKER NURSE KAY FOR CONTINUITY OF CARE. PATIENT IN STABLE CONDITION. RESPIRATIONS EVEN AND UNLABORED, ROOM AIR. IV INTACT AND PATENT. SAFETY MEASURES IN PLACE. BED IN LOW POSITION. BED ALARM ON. CALL LIGHT WITHIN REACH. WILL CONTINUE TO MONITOR.
--- NOTE | 2020-03-13 07:45 | NUR ---
DR. ROBERTSON REMOVED JEREMY DRAIN. PATIENT IN STABLE CONDITION.
[2020-03-13 08:00] VITALS: BP 107/50
[2020-03-13] MEDS: MONTELUKAST SODIUM 10 MG TAB PO SCH (08:48)
[2020-03-13] MEDS: GABAPENTIN 300 MG CAP PO SCH ×3 (08:49→17:00)
[2020-03-13] MEDS: PANTOPRAZOLE 40 MG TABEC PO SCH (08:49)
[2020-03-13] MEDS: ENOXAPARIN 40 MG/0.4 ML SYR SUBQ SCH (08:50)
[2020-03-13] MEDS: HYDROmorphone 1 MG/ML AMP IVP PRN (09:17)
--- NOTE | 2020-03-13 09:28 | NUR ---
GAVE ORDERED DUE MEDICATIONS AT THIS TIME. PATIENT TOLERATED WELL. ASSISTED WITH BEDPAN AND DRAINING ILEOSTOMY POUCH 125ML. BED IN LOW POSITION. BED ALARM ON. CALL LIGHT WITHIN REACH. WILL CONTINUE TO MONITOR.
[2020-03-13] MEDS: POTASSIUM CHL 10 MEQ/D5-1/2NS 1,000 ML IV SCH (09:51)
--- NOTE | 2020-03-13 10:17 | NUR ---
CRITICAL LAB LACTIC 2.3
--- NOTE | 2020-03-13 13:55 | NUR ---
PATIENT GIVEN WALKER TO HELP AMBULATE TO RESTROOM. PATIENT INFORMED NOT TO TAKE HOME. PATIENT VERBALIZED UNDERSTANDING.
[2020-03-13] MEDS ORDERED: MAG SULF 2000 MG/WATER PREMIX 50 ML IV SCH (14:14)
[2020-03-13] MEDS ORDERED: MAG SULF 2000 MG/WATER PREMIX 50 ML IV ONE (14:38)
[2020-03-13 16:00] VITALS: BP 104/54
--- NOTE | 2020-03-13 19:31 | NUR ---
GAVE REPORT TO BOARDING ROOM FIXER NURSE FOR CONTINUITY OF CARE. PATIENT IN STABLE CONDITION.
[2020-03-13 20:00] VITALS: BP 119/72
--- NOTE | 2020-03-13 20:00 | NUR ---
PT WANTS TO BE CHANGED THE FOREIGN TRADE TEACHER CHANGED HER BECAUSE PT WAS WET W/ URINE
[2020-03-13] MEDS ORDERED: ACETAMINOPHEN 325 MG TAB ONE (20:13)
[2020-03-13] MEDS ORDERED: IBUPROFEN 400 MG TAB ONE (20:13)
--- NOTE | 2020-03-13 20:15 | NUR ---
BAG NEEDS TO BE CHANGED IT WAS LEAKING WHEN THE SOCIAL MEDIA INTERN TURNED HER TO THE SIDE. PT'S DRESSING ON THE DALE WERE CHANGED AND WELL THE BAG.
[2020-03-13] MEDS: NORTRIPTYLINE 25 MG CAP PO SCH (22:13)
--- NOTE | 2020-03-13 22:19 | NUR ---
PT REFUSED TYLENOL, PT SAID SHE DOES WANT IT. INFORMED HER THE RISKS AND BENEFITS.
--- NOTE | 2020-03-13 22:27 | NUR ---
PT'S ENDORSED TO OTHER INDUSTRIAL TECHNOLOGY TEACHER NURSE FOR CONTINUITY OF CARE
--- NOTE | 2020-03-13 22:28 | NUR ---
RECEIVED REPORT FROM AM SHIFT. PT SEEN AND ASSESSED. PT IS IN NO APPARENT RESPIRATORY DISTRESS AT THIS TIME. PT WAS PLACED ON CPAP 6cmH20 AND FiO2 21% WITH SPO2 OF 95%. DIMINISHED BS ON AUSCULTATION. PRN TX NOT INDICATED AT THIS TIME. PT WAS INFORMED TO CALL FOR PRN TX IF EXPERIENCING SOB. WILL CONTINUE TO MONITOR PT.
[2020-03-14] MEDS: PIPERACILLIN/TAZOBACTAM 3.375 GM in DEXTROSE 5% 50 ML IV SCH ×3 (00:28→13:44)
--- NOTE | 2020-03-14 00:30 | NUR ---
ADMINISTERED DUE MEDICATION. MEDICATION EDUCATION GIVEN. PT VERBALIZED UNDERSTANDING. NO DISTRESS NOTED. WILL CONTINUE TO MONITOR. Addendum: 03/14/20 at 0132 by Kip Vega RN ADMINISTERED DUE MEDICATION PER AT 0030
[2020-03-14] MEDS: POTASSIUM CHL 10 MEQ/D5-1/2NS 1,000 ML IV SCH ×3 (00:44→15:45)
[2020-03-14] MEDS: SIMETHICONE 80 MG TAB.CHEW PO PRN (01:00)
--- NOTE | 2020-03-14 01:00 | NUR ---
RECEIVED PT FROM OTHER NIGHT NURSE FOR CONTINUITY OF CARE. PT HAS NO S/S RESPIRATORY DISTRESS. PT PLACED ON CPAP 6cmH20 AND FiO2 21% WITH SPO2 OF 95%. CALL LIGHT WITHIN REACH. WILL CONTINUE TO MONITOR
--- NOTE | 2020-03-14 01:00 | NUR ---
PT REQUESTING MEDICATION FOR ACID OR GAS. ADMINISTERED MYLICON PER MD. MEDICATION EDUCATION GIVEN. PT VERBALIZED UNDERSTANDING. WILL CONTINUE TO MONITOR.
[2020-03-14 01:04] VITALS: BP 110/63
--- NOTE | 2020-03-14 02:15 | NUR ---
PT ASLEEP. NO DISTRESS NOTED. WILL CONTINUE TO MONITOR.
--- NOTE | 2020-03-14 03:30 | NUR ---
PT ASLEEP. NO DISTRESS NOTED. WILL CONTINUE TO MONITOR.
--- NOTE | 2020-03-14 04:46 | NUR ---
PT AWAKE AND RESTING IN BED. HAS PRODUCTIVE COUGH. NO S/S RESPIRATORY DISTRESS, NO C/O PAIN AT THIS TIME. OFF CPAP. NO SOB. CALL LIGHT WITHIN REACH. WILL CONTINUE TO MONITOR.
[2020-03-14 06:28] LABS: BASOPHILS % (AUTO) 0.3 % (0.0-2.0); EOSINOPHILS # (AUTO) 0.6 K/uL (0-0.4); HEMATOCRIT 37.4 % (36-48); LYMPHOCYTES # (AUTO) 2.5 K/uL (2.5-16.5); LYMPHOCYTES % (AUTO) 21.8 % (20.5-51.1); MEAN CORPUSCULAR HEMOGLOBIN 27 pg (27-31); MEAN CORPUSCULAR HGB CONC 32 g/dL (33-37); MEAN CORPUSCULAR VOLUME 84.5 fL (80-94); MONOCYTES # (AUTO) 0.7 K/uL (0.8-1.0); MONOCYTES % (AUTO) 5.6 % (1.7-9.3); NEUTROPHILS # (AUTO) 7.8 K/uL (1.8-7.7); NEUTROPHILS % (AUTO) 67.3 % (42.2-75.2); PLATELET COUNT (AUTO) 345 K/uL (140-450); RED BLOOD CELL COUNT(AUTO) 4.43 MIL/uL (4.20-5.40); RED CELL DISTRIBUTION WIDTH 15.9 % (11.6-13.7); WHITE BLOOD COUNT (AUTO) 11.6 K/uL (4.8-10.8)
[2020-03-14] MEDS: atenoloL 50 MG TAB PO SCH (06:30)
[2020-03-14 06:54] LABS: ANION GAP 9.5 (8-16); CARBON DIOXIDE 29.1 mmol/L (21-32); CREATININE 0.9 mg/dL (0.6-1.3); POTASSIUM 3.6 mmol/L (3.5-5.1)
[2020-03-14 07:00] LABS: MAGNESIUM 1.5 mg/dL (1.8-2.4); PHOSPHORUS 3.1 mg/dL (2.5-4.9)
--- NOTE | 2020-03-14 07:10 | NUR ---
ENDORSED PT IN STABLE CONDITION TO DAY RN FOR CONTINUITY OF CARE.
--- NOTE | 2020-03-14 07:11 | NUR ---
RECEIVED REPORT FROM AGENT PRODUCER NURSE YARON-LYNNE. PT RESTING IN BED, AOX4. ON ROOM AIR WITH LEFT HAND #22G RUNNING D5/NS 0.45% @ 100ML/HR. S/P LAPAROTOMY PARTIAL COLECTOMY WITH LEFT SIDE 34 STABLES NANCY. DISCUSSED PLAN OF CARE AND PT VERBALIZED UNDERSTANDING. CALL LIGHT WITHIN REACH. NO S/S OF RESPIRATORY DISTRESS OR DISCOMFORT NOTED AT THIS TIME. WILL CONTINUE TO MONITOR.
[2020-03-14] MEDS: ACETAMINOPHEN 325 MG TAB PO SCH ×2 (07:17→11:30)
[2020-03-14] MEDS: BLOOD GLUCOSE MONITORING 1 DEV DEV FS SCH ×2 (07:18→11:51)
[2020-03-14 08:00] VITALS: BP 111/67
[2020-03-14] MEDS: PANTOPRAZOLE 40 MG TABEC PO SCH (08:37)
[2020-03-14] MEDS: IBUPROFEN 400 MG TAB PO SCH ×2 (08:37→13:21)
[2020-03-14] MEDS: MONTELUKAST SODIUM 10 MG TAB PO SCH (08:37)
[2020-03-14] MEDS: HYDROmorphone 1 MG/ML AMP IVP PRN ×2 (08:38→15:20)
[2020-03-14] MEDS: ENOXAPARIN 40 MG/0.4 ML SYR SUBQ SCH (08:39)
[2020-03-14] MEDS: GABAPENTIN 300 MG CAP PO SCH ×2 (08:39→13:00)
--- NOTE | 2020-03-14 08:39 | NUR ---
SCHEDULED MEDICATIONS GIVEN AND TOLERATED WELL. PT REFUSED NEURONTIN AND REQUESTING DILAUDID FOR PAIN STATING" MORPHINE AND NORCO DOESN'T DO ANYTHING FOR THE PAIN." DILAUDID GIVEN AND TOLERATED WELL. CALL LIGHT WITHIN REACH. NO S/S OF RESPIRATORY DISTRESS OR DISCOMFORT NOTED AT THIS TIME. WILL CONTINUE TO MONITOR.
--- NOTE | 2020-03-14 10:00 | NUR ---
ASSISTED PT TO USE BEDPAN TO URINATE. PT TEACHING ON HOW TO USE COLOSTOMY BAG. PT VERBALIZED UNDERSTANDING. CALL LIGHT WITHIN REACH. NO S/S OF RESPIRATORY DISTRESS OR DISCOMFORT NOTED AT THIS TIME. WILL CONTINUE TO MONITOR.
--- NOTE | 2020-03-14 11:30 | NUR ---
BLOOD GLUCOSE 193- WILL GIVEN INSULIN COVERAGE. CALL LIGHT WITHIN REACH. NO S/S OF RESPIRATORY DISTRESS OR DISCOMFORT NOTED AT THIS TIME. WILL CONTINUE TO MONITOR.
[2020-03-14] MEDS ORDERED: MAG SULF 2000 MG/WATER PREMIX 50 ML IV SCH (12:00)
--- NOTE | 2020-03-14 12:01 | NUR ---
SCHEDULED MEDICATION MAGNESIUM RIDDER GIVEN AND TOLERATED WELL. WILL GIVEN ZOSYN SOON MAG RIDDER IS COMPLETE. CALL LIGHT WITHIN REACH. NO S/S OF RESPIRATORY DISTRESS OR DISCOMFORT NOTED AT THIS TIME. WILL CONTINUE TO MONITOR.
[2020-03-14] MEDS: INSULIN LISPRO SLIDING SCALE 100 UNITS/ML VIAL SUBQ PRN (13:20)
--- NOTE | 2020-03-14 13:21 | NUR ---
SCHEDULED MEDICATION MOTRIN AND INSULIN COVERAGE GIVEN. PT REFUSING TYLENOL STATING "THAT DOESN'T DO ANYTHING FOR ME." PT TOLERATED WELL. CALL LIGHT WITHIN REACH. NO S/S OF RESPIRATORY DISTRESS OR DISCOMFORT NOTED AT THIS TIME. WILL CONTINUE TO MONITOR.
--- NOTE | 2020-03-14 13:44 | NUR ---
SCHEDULED MEDICATION ZOSYN GIVEN. CALL LIGHT WITHIN REACH. NO S/S OF RESPIRATORY DISTRESS OR DISCOMFORT NOTED AT THIS TIME. WILL CONTINUE TO MONITOR.
--- NOTE | 2020-03-14 15:00 | NUR ---
ASSISTED PT TO USE BED GARCIA TO URINATE. PT TOLERATED WELL. CALL LIGHT WITHIN REACH. NO S/S OF RESPIRATORY DISTRESS OR DISCOMFORT NOTED AT THIS TIME. WILL CONTINUE TO MONITOR.
[2020-03-14 16:04] VITALS: BP 111/67
--- NOTE | 2020-03-14 17:00 | NUR ---
PT SIGNED DISCHARGE PAPERWORK.
--- NOTE | 2020-03-14 17:45 | NUR ---
ID BANDS REMOVED AND IV SITE REMOVED- CANNULA INTACT. CALL LIGHT WITHIN REACH. NO S/S OF RESPIRATORY DISTRESS OR DISCOMFORT NOTED AT THIS TIME. WILL CONTINUE TO MONITOR.
--- NOTE | 2020-03-14 17:50 | NUR ---
PT WAS WHEELED TO FRONT LOBBY WITH ALL PERSONAL BELONGINGS. PT WAS GREETED BY AND ASSISTED PT TO CAR. PT IN STABLE CONDITION AT THIS TIME.
== END 2020-03-14 17:50 | disposition home health service (06) | DRG 853 ==
LOC: MED 18:08 → MMU 21:53
PROVIDERS: ADMIT General Practice; ATTEND General Practice
PROC: 0D1B0Z4 Bypass Ileum to Cutaneous, Open Approach (ICD-10-PCS; 2020-03-09)
PROC: 0DBM0ZZ Excision of Descending Colon, Open Approach (ICD-10-PCS; principal; 2020-03-09 22:00)
DX: A41.9 Sepsis, unspecified organism (principal); E43 Unspecified severe protein-calorie malnutrition; N17.0 Acute kidney failure with tubular necrosis; Z68.43 Body mass index [BMI] 50.0-59.9, adult; E87.1 Hypo-osmolality and hyponatremia; E87.2 Acidosis; I48.20 Chronic atrial fibrillation, unspecified; K57.20 Diverticulitis of large intestine with perforation and abscess without bleeding; E11.9 Type 2 diabetes mellitus without complications; E66.01 Morbid (severe) obesity due to excess calories; I25.10 Atherosclerotic heart disease of native coronary artery without angina pectoris; J44.9 Chronic obstructive pulmonary disease, unspecified; K76.0 Fatty (change of) liver, not elsewhere classified; Z96.652 Presence of left artificial knee joint; F32.9 Major depressive disorder, single episode, unspecified; G47.33 Obstructive sleep apnea (adult) (pediatric); M19.90 Unspecified osteoarthritis, unspecified site; E83.42 Hypomagnesemia; Z79.4 Long term (current) use of insulin; Z90.49 Acquired absence of other specified parts of digestive tract
CPT/HCPCS: 36415; 71045; 80048; 80053; 80305; 81003; 82150; 82948; 83036; 83605; 83690; 83735; 83880; 84100; 84439; 84443; 84484; 84703; 85025; 85610; 85730; 86886; 86900; 86901; 87040; 87081; 87086; 88307; 96365; 96367; 96375; 97110; 97116; 97161-GP; 97530; 99291; J0295; J1100; J1170; J1650; J1815; J2001; J2060; J2270; J2370; J2405; J2543; J2704; J3010; J3475; J3490; J7030; J7042; J7060; Q0092; Q9967